=== PATIENT | female | born 1950 | race Caucasian/White ===

== ENCOUNTER 2018-06-24 12:32 | Emergency (ER) | payer MEDICARE, SELFPAY ==
[2018-06-24 12:33] VITALS: BP 168/103; PULSE 73; RESP 16; TEMP 36.8; O2SAT 99; BMI 24.0
--- NOTE | 2018-06-24 12:40 | EKG12_ITS ---
Test Reason : Blood Pressure : / mmHG Vent. Rate : 066 BPM Atrial Rate : 066 BPM P-R Int : 218 ms QRS Dur : 090 ms QT Int : 400 ms P-R-T Axes : 063 072 021 degrees QTc Int : 419 ms Sinus rhythm with 1st degree A-V block ST & T wave abnormality, consider inferior ischemia Abnormal ECG Confirmed by LIZZIE DONOHUE, KELBY ([id number]), publication editor MICHAEL ACEVES ([id number]) on 06/28/2018 11:40:26 AM Referred By: MCKENZIE Confirmed By:KELBY SAMUEL MD
--- NOTE | 2018-06-24 12:54 | ED.DCSUM_ITS ---
History of Present Illness Chief Complaint: Weakness Detail of Chief Complaint: Abnormal EKG and near syncope Informant: Patient Onset: Yesterday Context: Sudden Onset Timing: Intermittent Quality: Lightheadedness at grocery store and restaurant Current Severity: - - No symptoms presently Maximum Severity: Moderate Worsened by: Uncertain Relieved by: Supine position Associated Symptoms: Tunnel vision, pallor, diaphoresis, according to bystander blue colored lip Narrative: Patient is an elderly woman with long-standing history of hypertension who went to see her doctor today because of 2 near syncopal episodes. First 1 occurred while at store standing. She reported tunnel vision, feeling lightheaded sick to her stomach and slightly sweaty. She thought may be secondary to not eating. She went to [facility] with her sister. While sitting in a ibanez she became pale tunnel vision dilated pupils discoloration of her lips and lightheadedness. She was placed in a supine position with her feet higher than her had and symptoms resolved she reports chronic dyspnea with exertion for years. She denies any cardiac, respiratory, GI, UTI or constitutional symptoms she presently has no symptoms. She was sent to the ER because of nonspecific ST-T wave changes which is new compared to an EKG obtained a decade ago. Prior similar symptoms: No Recent Illness/Hospitalization: No - Past Medical History (1) Hypertension, essential, benign Status: Chronic Past Medical History - Allergies and Home Meds Allergies/Adverse Reactions: Allergies No Known Allergies Allergy (Verified 06/24/18 12:35) Primary Care Physician: Janey Lopez MD [Primary Care Provider] - Prior records reviewed: Yes Surgical History: hysterectomy Lives: Alone Smoking Status: Never smoker Alcohol: None Review of Systems General: Denies: Chills, Fever, Sweats Eyes: Denies: Visual changes - bilaterally, Blurred Vision - bilaterally, Diplopia ENT: Denies: Bilateral ear pain, Rhinorrhea, Sore throat Cardiovascular: Denies: Chest pain, Palpitations Respiratory: Reports: Dyspnea on exertion - Chronic for years. Denies: Dyspnea, Cough, Orthopnea, Paroxysmal nocturnal dyspnea Gastrointestinal: Denies: Abdominal pain, Nausea, Vomiting, Diarrhea, Melena, Hematochezia Genitourinary: Denies: Dysuria, Hematuria, Frequency Musculoskeletal: Denies: Back pain, Extremity Pain Skin: Denies: Rash, Wounds Neurological: Denies: Headache, Weakness, Numbness Endocrine: Denies: Polyuria, Polydipsia Hematologic: Denies: Easy bruising Allergy: Denies: Uticaria Physical Exam Vital Signs/Narrative: Vital Signs Temp Pulse Resp BP Pulse Ox 06/24/18 12:33 98.2 F 73 16 168/103 H 99 Inital Vital Signs reviewed: Yes General: Well nourished - :, Well developed, No Acute Distress Head: Normocephalic, Atraumatic Eyes: Perrl, EOMI. Negative for: Pale conjunctiva, Scleral icterus ENT: Moist mucous membranes, No rhinorrhea Neck: Supple, Nontender, No lymphadenopathy, No JVD Cardiovascular: Regular rate, Regular rhythm, No murmurs Respiratory: No distress, CTA bilaterally, Chest nontender Abdomen: Soft, Nontender, Nondistended, Normal bowel sounds Back: Nontender, Normal Inspection. Negative for: CVA tenderness Extremities: Nontender, No edema. Negative for: Calf Tenderness Skin: Normal color, No rash Neurological: Alert, Oriented x3, Cranial nerves II-XII grossly intact, Normal Strength, Normal Sensation, Normal Gait Psychological: Normal affect, Normal Mood Diagnostic/Tx/Re-eval Laboratory Results 06/24/18 06/24/18 13:18 13:18 WBC 7.5 RBC 4.92 Hgb 14.4 Hct 43.7 MCV 88.8 MCH 29.3 MCHC 33.0 RDW 12.1 RDW Differential 39.0 Plt Count 381 MPV 8.7 Immature Gran % (Auto) 0.300 Neut % (Auto) 59.6 Lymph % (Auto) 29.8 Real % (Auto) 8.0 Eos % (Auto) 1.6 Baso % (Auto) 0.7 Absolute Neuts (auto) 4.5 Absolute Lymphs (auto) 2.25 Total Counted Not Reportable Sodium 133 L Potassium 4.1 Chloride 100 Carbon Dioxide 26.0 Anion Gap 7 BUN 12 Creatinine 0.89 Estim Creat Clear Calc 52.97 Est GFR (MDRD) Af Amer 81 Est GFR (MDRD) Non-Af 67 BUN/Creatinine Ratio 13.5 Glucose 101 Calcium 8.9 Troponin I < 0.015 - Rhythm Strip Rhythm Strip: Sinus Rhythm Rate: 63 Ectopy: None - EKG Initial EKG Interpretation: Sinus Rhythm - Ventricular rate is 66. There is evidence of first-degree AV block and there is no ossific ST-T wave changes noted in lead III and aVF as well as V3, V4 and possibly V5. QRS duration normal. QT interval normal. [place] is normal. - Medical Decision Making Symptoms are suggestive of vasovagal near syncopal episode. Will obtain troponin to evaluate for atypical cardiac ischemia. CBC to evaluate for white count and anemia. BMP to assess for electrolyte abnormality and renal function. EKG was obtained and unchanged from EKG obtained at physician's office. She does revealed nonspecific changes. With a normal troponin with onset of symptoms 24 hours ago one would rule out acute cardiac ischemia as cause. This most likely represents chronic changes. Her blood work is unremarkable. Therefore outpatient workup is appropriate. ED Disposition - Plan for ED Patient: Disposition: Home or Assisted Living Diagnosis: Vasovagal near syncope, Abnormal finding on EKG, Hypertension, essential, benign Instructions: ED Near Syncope Vasovagal Referrals: Janey Lopez MD [Primary Care Provider] - 3-5 Days
[2018-06-24 13:27] LABS: Absolute Lymphocyte Count 2.25 X10^3/ul (0.83-4.51); Absolute Neutrophil Count 4.5 X10^3/uL (2.0-7.7); Basophil# 0.05 X10^3/uL; Basophil% 0.7 % (0-1); Eosinophil# 0.12 X10^3/uL; Eosinophils% 1.6 % (0-5); Hematocrit 43.7 % (37-47); Hemoglobin 14.4 g/dl (12.0-15.0); Lymphocyte # 2.25 X10^3/ul (4.0); Lymphocyte % 29.8 % (19-41); Mean Corpuscular Hgb 29.3 pg (27.0-32.0); Mean Corpuscular Volume 88.8 fL (81-99); Mean Platelet Vol. 8.7 fl (6.2-12.0); Neutrophil % 59.6 % (47-70); Platelet Count 381 K/mm3 (150-450); RBC Distribution Width CV 12.1 % (11.6-14.6); Red Blood Count 4.92 M/mm3 (4.2-5.4); White Blood Count 7.5 K/mm3 (4.4-11.0)
[2018-06-24 13:28] LABS: POSITIVE COUNT NO; POSITIVE DIFFERENTIAL NO; POSITIVE MORPHOLOGY NO
[2018-06-24 13:49] LABS: Anion Gap 7 (5-15); BUN 12 mg/dL (7-18); BUN/Creat Ratio 13.5 RATIO (10-20); Calcium,Total 8.9 mg/dL (8.5-10.1); Chloride 100 mmol/L (98-107); Creatinine, Serum 0.89 mg/dL (0.55-1.02); EST Glomerular Filtration Rate 67 mL/min (>60); Est Glom Filt Rate - Afr Amer 81 mL/min (>60); Estimated Creatinine Clearance 52.97 ml/min; Glucose 101 mg/dL (74-106); Potassium 4.1 mmol/L (3.5-5.1); Sodium Level 133 mmol/L (136-145)
[2018-06-24 14:39] VITALS: BP 151/87; BP 185/77; BP 193/90; PULSE 55; PULSE 63; PULSE 66
== END 2018-06-24 14:41 | disposition home or self-care (01) ==
PROVIDERS: Emergency Provider Emergency Medicine; Family Provider Internal Medicine; PCP Internal Medicine
DX: R55 Syncope and collapse (principal); R94.31 Abnormal electrocardiogram [ECG] [EKG]; I10 Essential (primary) hypertension
CPT/HCPCS: 80048; 84484; 85025; 93005; 99285

== ENCOUNTER → 2023-10-15 | Outpatient (CLI) | payer MEDICARE, SELFPAY ==
--- NOTE | 2023-10-15 07:17 | ECHOCS_ITS ---
Reason For Study: Chest Pain Procedure This was a 2D Doppler, Color Flow transthoracic echocardiogram. The study was technically difficult. Contrast injection was performed. Exam performed in department. Left Ventricle Normal size and thickness. The left ventricular ejection fraction is 70 %. Diastolic function is indeterminate. Right Ventricle Normal right ventricle. Atria The left and right atria are normal. Aneurysmal interatrial septum. Bubble study suggestive of possible tiny PFO. Mitral Valve Trivial mitral valve insufficiency. Tricuspid Valve Normal tricuspid valve. Aortic Valve Trisinus/trileaflet aortic valve. Pulmonic Valve The pulmonic valve is not well visualized. Trivial pulmonic valve insufficiency. Great Vessels Normal sized aortic root. Pericardium/Pleural No pericardial effusion. Medication 22 gauge I.V. with prn adaptor inserted into right arm. Diluted definity 1ml given slow IV push to enhance endocardial definition. Performed a rapid injection of agitated mix of 9 cc saline and 1cc air to assess for atrial septal defect. MMode/2D Measurements & Calculations LVIDd: 3.5 cm IVSd: 0.75 cm Ao root diam: 2.7 cm LVIDs: 2.2 cm LVPWd: 0.68 cm LA dimension: 2.5 cm RVDd: 3.0 cm FS: 36.5 % LAV(MOD-bp): 30.9 ml LVAd ap4: 25.6 cm2 SV(MOD-sp4): 45.7 ml LAV(MOD-bp) Indexed: 19.3 ml/m2 LVLd ap4: 7.2 cm LAV(MOD-sp2): 33.6 ml EDV(MOD-sp4): 73.4 ml LAV(MOD-sp4): 28.3 ml EDV(sp4-el): 77.7 ml LVAs ap4: 13.3 cm2 LVLs ap4: 5.4 cm ESV(MOD-sp4): 27.6 ml ESV(sp4-el): 27.9 ml EF(MOD-sp4): 62.3 % EF(sp4-el): 64.1 % SV(sp4-el): 49.8 ml LA A4 area: 13.5 cm2 RA A4 area: 10.5 cm2 TAPSE: 2.0 cm Time Measurements MV dec time: 0.29 sec Doppler Measurements & Calculations MV E max erick: 62.6 cm/sec Lat Peak E' Erick: 5.8 cm/sec Med Peak E' Erick: 6.6 cm/sec MV A max erick: 89.7 cm/sec E/E' lat: 10.8 E/E' med: 9.5 MV E/A: 0.70 MV V2 max: 114.3 cm/sec MV P1/2t max erick: 80.6 cm/sec Ao V2 max: 135.3 cm/sec MV max P.2 mmHg MV P1/2t: 98.9 msec Ao max P.3 mmHg MV V2 mean: 55.6 cm/sec Ao V2 mean: 92.1 cm/sec MV mean P.5 mmHg MV dec slope: 238.8 cm/sec2 Ao mean P.9 mmHg MV V2 VTI: 28.3 cm MVA(P1/2t): 2.2 cm2 Ao V2 VTI: 30.1 cm AV (velocity ratio): 0.83 LV V1 max: 113.2 cm/sec PA V2 max: 99.1 cm/sec LV V1 max P.1 mmHg PA max PG (full): 1.0 mmHg LV V1 mean P.7 mmHg LV V1 mean: 75.9 cm/sec LV V1 VTI: 24.9 cm ECHO/Echo Complete W/ Contrast Interpretation Summary The left ventricular ejection fraction is 70 %. Aneurysmal interatrial septum. Bubble study suggestive of possible tiny PFO. Ordering Physician: Shanti Edwards Referring Physician: Janey Lopez M.D. Performed By: Shaun Montesinos RCS
--- NOTE | 2023-10-15 09:24 | STRESSREP ---
Stress Test Report Date: 10/15/2023 Procedure: Exercise tolerance test/imaging study Indications: Dyspnea/chest pain Consent: Per the patient Procedure: The patient exercised on a Ricky protocol for 6 minutes and 4 seconds achieving a peak heart rate of 144 bpm (97% predicted maximal heart rate) with a peak blood pressure 168/72 mmHg and a peak MET capacity of 7.1 METs. The baseline ECG demonstrated sinus rhythm. The peak exercise ECG demonstrated no ischemic changes. There were no cardiac dysrhythmias pretest, during exercise, or recovery. The functional capacity was considered good for age. There was no complaint of chest discomfort during exercise or recovery. The examination was discontinued secondary to target heart rate being achieved and dyspnea. The patient was injected with 11.3 mCi of technetium 99m Cardiolite and subsequently rest SPECT Cardiolite nuclear imaging was obtained in the horizontal long, vertical long, and short axis views. Post-exercise, the patient was injected with 35.1 mCi of technetium 99m Cardiolite and subsequently stress SPECT Cardiolite nuclear imaging was obtained in the horizontal long, vertical long, and short axis views. A gated Cardiolite study at peak stress was obtained. Rest and stress SPECT Cardiolite nuclear imaging status post realignment, normalization, and attenuation correction, demonstrates prominent attenuation artifact at rest which is improved post stress. There is end systolic thickening and brightening. The gated Cardiolite study demonstrates myocardial thickening and inward wall motion. The reported LVEF is 89%. Impression: 1. Technically adequate (percent predicted maximal heart rate greater than 85%) exercise tolerance test 2. Peak exercise ECG with no ischemic changes 3. There were no cardiac dysrhythmias pretest, during exercise, or recovery 4. Rest and stress SPECT Cardiolite nuclear imaging demonstrate no fixed or reversible perfusion defects. 5. The gated Cardiolite study reports an LVEF of 89%. This note was generated with [employer] software. It may contain incorrect words, spelling, and punctuation that were not noted in checking the note before signing.
== END | disposition home or self-care (01) ==
PROVIDERS: PCP Internal Medicine; Referring Provider Internal Medicine Cardiovascular Disease; Visit Provider Internal Medicine Cardiovascular Disease
DX: R07.9 Chest pain, unspecified (principal); R06.02 Shortness of breath; R00.1 Bradycardia, unspecified; I10 Essential (primary) hypertension
CPT/HCPCS: 78452; 93017; 93306; A9500; Q9957; A4216; C8929